=== PATIENT | male | born 1970 | race Caucasian/White ===

== ENCOUNTER 2017-08-22 17:06 | Emergency (ER) | payer OTHER ==
[~2017-08-22] VITALS: Ht 195.6 cm; Wt 122.7 kg
[~2017-08-22 17:06] MED LIST: ALBU8.5H8 IH; CHOL10002 PO; DULA1.5P SQ; METF500T PO; PRED10TA PO; TUBE5VIA3 ID
[2017-08-22] MEDS ORDERED: normal saline 1000ML IV soln IV ONE (20:05)
[2017-08-22 20:59] LABS: BASOPHILS # (AUTO) 0.1 X10'3 (0-0.2); BASOPHILS % (AUTO) 0.5 % (0-1); EOSINOPHILS # (AUTO) 0.1 X10'3 (0-0.9); EOSINOPHILS % (AUTO) 0.5 % (0-6); HEMATOCRIT 44.4 % (42.0-52.0); HEMOGLOBIN 15.3 g/dl (14.0-17.9); LYMPHOCYTES # (AUTO) 2.7 X10'3 (1.1-4.8); LYMPHOCYTES % (AUTO) 20.4 % (21-51); MEAN CORPUSCULAR HEMOGLOBIN 29.1 PG (27.0-31.0); MEAN CORPUSCULAR HGB CONC 34.4 % (33.0-36.5); MEAN CORPUSCULAR VOLUME 84.6 FL (78-98); MONOCYTES # (AUTO) 1.1 X10'3 (0-0.9); MONOCYTES % (AUTO) 8.5 % (2-12); NEUTROPHILS # (AUTO) 9.4 X10'3 (1.8-7.7); NEUTROPHILS % (AUTO) 70.1 % (42-75); PLATELET COUNT 257 X10'3 (140-440); RED BLOOD COUNT 5.25 X10'6 (4.70-6.10); RED CELL DISTRIBUTION WIDTH 14.1 % (11.5-14.5); WHITE BLOOD COUNT 13.4 X10'3 (4.5-11.0)
[2017-08-22 21:09] LABS: PROTHROMBIN TIME 10.4 SECONDS (9.0-12.0)
[2017-08-22] MEDS ORDERED: LIDOcaine 1.5% w/epinephrine 1:200,000 5ml ampul IJ ONE (21:10)
[2017-08-22] MEDS ORDERED: fentaNYL/PF 50MCG/1 ML 2ML syringe ONE (21:30)
[2017-08-22 21:36] LABS: ALANINE AMINOTRANSFERASE 35 U/L (12-78); ALBUMIN 3.5 G/DL (3.4-5.0); ALBUMIN/GLOBULIN RATIO 0.9 (1.1-1.5); ALKALINE PHOSPHATASE 80 IU/L (46-116); ANION GAP 10 (8-16); ASPARTATE AMINO TRANSFERASE 14 U/L (10-37); BILIRUBIN,TOTAL 0.5 MG/DL (0.1-1.0); BLOOD UREA NITROGEN 13 MG/DL (7-18); BUN/CREATININE RATIO 15.1 (5.4-32.0); CALCIUM 8.9 MG/DL (8.5-10.1); CHLORIDE 101 MMOL/L (99-107); CREATININE 0.86 MG/DL (0.60-1.10); GLUCOSE 278 MG/DL (70-104); POTASSIUM 3.8 MMOL/L (3.5-5.1); SODIUM 136 MMOL/L (135-145); TOTAL CARBON DIOXIDE 25.1 MMOL/L (24-32); TOTAL PROTEIN 7.6 G/DL (6.4-8.2); eGFR > 90 ML/MIN
[2017-08-22 21:37] LABS: C-REACTIVE PROTEIN 4.59 MG/DL (0.0-0.5); MAGNESIUM 1.8 MG/DL (1.5-2.4)
[2017-08-22] MEDS ORDERED: HYDR-3965 PO (22:10)
[2017-08-22] MEDS ORDERED: NAPR-1154 PO (22:10)
[2017-08-22 23:00] VITALS: BP 138/88
== END 2017-08-22 23:05 | disposition home or self-care (01) ==
LOC: ER 17:07
DX: M25.562 Pain in left knee (principal); I10 Essential (primary) hypertension; E11.9 Type 2 diabetes mellitus without complications; F17.210 Nicotine dependence, cigarettes, uncomplicated; F12.10 Cannabis abuse, uncomplicated; Z88.5 Allergy status to narcotic agent; Z86.14 Personal history of Methicillin resistant Staphylococcus aureus infection; Z79.84 Long term (current) use of oral hypoglycemic drugs; Z79.899 Other long term (current) drug therapy
CPT/HCPCS: 36415; 73564; 80053; 83735; 84145; 84550; 85025; 85610; 86140; 96374; 99285; A6449; J3010; J3490; J7030

== ENCOUNTER 2017-09-05 13:02 | Outpatient (CLI) | payer OTHER ==
[~2017-09-05 13:02] MED LIST changes: +HYDR-3965 PO; +NAPR-1154 PO
[2017-09-05 13:13] VITALS: BP 151/102
== END 2017-09-05 15:20 | disposition home or self-care (01) ==
LOC: ORTHO 13:02
PROVIDERS: ATTEND Nurse Practitioner Family
DX: M25.562 Pain in left knee (principal); I10 Essential (primary) hypertension; E11.9 Type 2 diabetes mellitus without complications; E78.00 Pure hypercholesterolemia, unspecified; F17.210 Nicotine dependence, cigarettes, uncomplicated; F12.90 Cannabis use, unspecified, uncomplicated
CPT/HCPCS: 73564; 99213

== ENCOUNTER 2017-09-14 11:12 | Outpatient (CLI) | payer OTHER ==
[2017-09-14 11:22] VITALS: BP 161/103
== END 2017-09-14 11:58 | disposition home or self-care (01) ==
LOC: ORTHO 11:12
PROVIDERS: ATTEND Nurse Practitioner Family
DX: M70.42 Prepatellar bursitis, left knee (principal); F17.200 Nicotine dependence, unspecified, uncomplicated; E78.00 Pure hypercholesterolemia, unspecified; I10 Essential (primary) hypertension; E11.9 Type 2 diabetes mellitus without complications; Z88.5 Allergy status to narcotic agent
CPT/HCPCS: 99213

== ENCOUNTER 2017-09-29 10:13 | Outpatient (CLI) | payer OTHER ==
[~2017-09-29 10:13] MED LIST changes: -HYDR-3965 PO
[2017-09-29 10:22] VITALS: BP 151/105
== END 2017-09-29 10:58 | disposition home or self-care (01) ==
LOC: ORTHO 10:13
PROVIDERS: ATTEND Nurse Practitioner Family
DX: M70.52 Other bursitis of knee, left knee (principal); E78.00 Pure hypercholesterolemia, unspecified; I10 Essential (primary) hypertension; E11.9 Type 2 diabetes mellitus without complications; J45.909 Unspecified asthma, uncomplicated; F17.210 Nicotine dependence, cigarettes, uncomplicated; Z88.8 Allergy status to other drugs, medicaments and biological substances
CPT/HCPCS: 99213

== ENCOUNTER 2017-10-17 10:05 | Outpatient (CLI) | payer OTHER ==
[2017-10-17 10:42] VITALS: BP 141/101
== END 2017-10-17 11:04 | disposition home or self-care (01) ==
LOC: ORTHO 10:05
PROVIDERS: ATTEND Nurse Practitioner Family
DX: M70.41 Prepatellar bursitis, right knee (principal); F17.210 Nicotine dependence, cigarettes, uncomplicated; E78.00 Pure hypercholesterolemia, unspecified; I10 Essential (primary) hypertension; E11.9 Type 2 diabetes mellitus without complications; J45.909 Unspecified asthma, uncomplicated; Z72.89 Other problems related to lifestyle; Z88.5 Allergy status to narcotic agent
CPT/HCPCS: 99213

== ENCOUNTER 2017-10-19 10:50 | Outpatient (CLI) | payer OTHER | END 2017-10-19 12:10 | disposition home or self-care (01) | LOC: ORTHO 10:50 | PROVIDERS: ATTEND Nurse Practitioner Family | DX: M17.12 Unilateral primary osteoarthritis, left knee (principal); M79.89 Other specified soft tissue disorders; E78.00 Pure hypercholesterolemia, unspecified; I10 Essential (primary) hypertension; E11.9 Type 2 diabetes mellitus without complications; J45.909 Unspecified asthma, uncomplicated; F17.210 Nicotine dependence, cigarettes, uncomplicated; Z72.89 Other problems related to lifestyle; Z88.5 Allergy status to narcotic agent | CPT/HCPCS: 73560; 99213 ==

== ENCOUNTER 2017-11-16 10:20 | Outpatient (CLI) | payer OTHER ==
[2017-11-16 10:29] VITALS: BP 164/111
== END 2017-11-16 11:15 | disposition home or self-care (01) ==
LOC: ORTHO 10:20
PROVIDERS: ATTEND Nurse Practitioner Family
DX: M70.42 Prepatellar bursitis, left knee (principal)
CPT/HCPCS: 99213

== ENCOUNTER 2017-12-07 09:59 | Outpatient (CLI) | payer OTHER ==
[2017-12-07 09:59] VITALS: BP 137/116
== END 2017-12-07 10:40 | disposition home or self-care (01) ==
LOC: ORTHO 09:59
PROVIDERS: ATTEND Nurse Practitioner Family
DX: M70.42 Prepatellar bursitis, left knee (principal)
CPT/HCPCS: 99213

== ENCOUNTER 2018-01-03 10:04 | Outpatient (CLI) | payer OTHER ==
[2018-01-03 10:04] VITALS: BP 152/103
== END 2018-01-03 10:27 | disposition home or self-care (01) ==
LOC: ORTHO 10:04
PROVIDERS: ATTEND Nurse Practitioner Family
DX: M70.42 Prepatellar bursitis, left knee (principal); E78.00 Pure hypercholesterolemia, unspecified; I10 Essential (primary) hypertension; E11.9 Type 2 diabetes mellitus without complications; F17.210 Nicotine dependence, cigarettes, uncomplicated; Z72.89 Other problems related to lifestyle; Z88.5 Allergy status to narcotic agent
CPT/HCPCS: 99213

== ENCOUNTER 2018-03-28 10:23 | Outpatient (CLI) | payer MEDICAID, OTHER ==
[2018-03-28 10:09] VITALS: BP 166/111
== END 2018-03-28 10:51 | disposition home or self-care (01) ==
LOC: ORTHO 10:23
PROVIDERS: ATTEND Nurse Practitioner Family
DX: M70.42 Prepatellar bursitis, left knee (principal); I10 Essential (primary) hypertension; E11.9 Type 2 diabetes mellitus without complications; J45.909 Unspecified asthma, uncomplicated; F17.210 Nicotine dependence, cigarettes, uncomplicated; E78.00 Pure hypercholesterolemia, unspecified; Z88.5 Allergy status to narcotic agent; Z79.84 Long term (current) use of oral hypoglycemic drugs
CPT/HCPCS: 99213

== ENCOUNTER 2018-04-25 10:09 | Outpatient (CLI) | payer MEDICAID ==
[2018-04-25 10:04] VITALS: BP 161/95
== END 2018-04-25 10:32 | disposition home or self-care (01) ==
LOC: ORTHO 10:09
PROVIDERS: ATTEND Nurse Practitioner Family
DX: M70.42 Prepatellar bursitis, left knee (principal); E78.00 Pure hypercholesterolemia, unspecified; I10 Essential (primary) hypertension; E11.9 Type 2 diabetes mellitus without complications; Z88.5 Allergy status to narcotic agent; Z87.891 Personal history of nicotine dependence
CPT/HCPCS: G0463

== ENCOUNTER 2018-05-23 10:10 | Outpatient (CLI) | payer MEDICAID ==
[2018-05-23 10:10] VITALS: BP 158/95
== END 2018-05-23 10:47 | disposition home or self-care (01) ==
LOC: ORTHO 10:10
PROVIDERS: ATTEND Nurse Practitioner Family
DX: M70.42 Prepatellar bursitis, left knee (principal); I10 Essential (primary) hypertension; E78.00 Pure hypercholesterolemia, unspecified; E11.9 Type 2 diabetes mellitus without complications; Z88.5 Allergy status to narcotic agent; Z87.891 Personal history of nicotine dependence
CPT/HCPCS: 99212

== ENCOUNTER 2019-02-09 00:49 | Emergency (ER) | payer MEDICAID ==
[~2019-02-09] VITALS: Ht 195.6 cm; Wt 119.8 kg
[2019-02-09] MEDS ORDERED: ketorolac trometh inj. 60 MG/2 ML VIAL IM ONE (01:30)
[2019-02-09] MEDS ORDERED: LIDOcaine 4% (40 mg/ml) topical solution 50ml TP ONE (01:35)
[2019-02-09] MEDS ORDERED: AMOX500C2 PO (01:39)
[2019-02-09] MEDS ORDERED: amoxicillin 250mg capsule PO ONE (03:15)
[2019-02-09 03:27] VITALS: BP 142/87
== END 2019-02-09 03:20 | disposition home or self-care (01) ==
LOC: ER 00:51
DX: H60.92 Unspecified otitis externa, left ear (principal); I10 Essential (primary) hypertension; E11.9 Type 2 diabetes mellitus without complications; Z86.14 Personal history of Methicillin resistant Staphylococcus aureus infection; Z79.899 Other long term (current) drug therapy; Z88.5 Allergy status to narcotic agent
CPT/HCPCS: 96372; 99283; J1885

== ENCOUNTER 2019-12-31 11:40 | Inpatient (IN) | payer MEDICAID ==
[~2019-12-31] VITALS: Ht 195.6 cm; Wt 122.7 kg
[2019-12-31] MEDS ORDERED: acetaminophen 325mg tablet PO STA (11:51)
[2019-12-31] MEDS ORDERED: normal saline 1000ML IV soln IV ONE (11:55)
[2019-12-31 12:45] LABS: BASOPHILS # (AUTO) 0.1 X10'3 (0-0.2); BASOPHILS % (AUTO) 0.6 % (0-1); EOSINOPHILS % (AUTO) 0.1 % (0-6); HEMATOCRIT 46.7 % (42.0-52.0); HEMOGLOBIN 15.7 g/dl (14.0-17.9); LYMPHOCYTES # (AUTO) 1.9 X10'3 (1.1-4.8); MEAN CORPUSCULAR HEMOGLOBIN 29.8 PG (27.0-31.0); MEAN CORPUSCULAR HGB CONC 33.7 g/dL (33.0-36.5); MEAN CORPUSCULAR VOLUME 88.6 FL (78-98); MEAN PLATELET VOLUME 8.5 FL (7.4-10.4); MONOCYTES # (AUTO) 1.4 X10'3 (0-0.9); MONOCYTES % (AUTO) 10.7 % (2-12); NEUTROPHILS % (AUTO) 74.6 % (42-75); PLATELET COUNT 265 X10'3 (140-440); RED BLOOD COUNT 5.27 X10'6 (4.70-6.10); RED CELL DISTRIBUTION WIDTH 14.3 % (11.5-14.5); WHITE BLOOD COUNT 13.5 X10'3 (4.5-11.0)
[2019-12-31 12:55] LABS: D-DIMER 0.25 MG/L FEU (0-0.50)
[2019-12-31] MEDS ORDERED: azithromycin/NS 500mg/250ml 250 ML IV ONE ×2 (12:55→16:00)
[2019-12-31] MEDS ORDERED: CefTRIAXone 2gm/D5W 50ml 50 ML IV ONE (12:55)
[2019-12-31] MEDS ORDERED: dexamethasone sod phosphate 10mg/ml inj IV STA (13:24)
[2019-12-31] MEDS ORDERED: ketorolac tromethamine 15mg/ml inj. IV ONE (13:45)
[2019-12-31 14:00] LABS: ALANINE AMINOTRANSFERASE 28 U/L (12-78); ALBUMIN 2.8 G/DL (3.4-5.0); ALBUMIN/GLOBULIN RATIO 0.8 (1.1-1.5); ALKALINE PHOSPHATASE 45 IU/L (46-116); ANION GAP 7 (8-16); ASPARTATE AMINO TRANSFERASE 13 U/L (10-37); BILIRUBIN,TOTAL 0.3 MG/DL (0.1-1.0); BLOOD UREA NITROGEN 12 MG/DL (7-18); BUN/CREATININE RATIO 9.4 (5.4-32.0); CALCIUM 7.3 MG/DL (8.5-10.1); CHLORIDE 103 MMOL/L (99-107); CREATININE 1.28 MG/DL (0.60-1.10); GLUCOSE 160 MG/DL (70-104); POTASSIUM 3.5 MMOL/L (3.5-5.1); SODIUM 136 MMOL/L (135-145); TOTAL CARBON DIOXIDE 26.1 MMOL/L (24-32); TOTAL PROTEIN 6.2 G/DL (6.4-8.2); eGFR 60 ML/MIN
[2019-12-31] MEDS ORDERED: LISI1TAB32 PO (15:18)
[2019-12-31] MEDS ORDERED: METF-438 PO (15:18)
[2019-12-31] MEDS ORDERED: SIMV80TA89 PO (15:18)
[2019-12-31] MEDS ORDERED: ERTU5TAB PO (15:18)
[2019-12-31] MEDS ORDERED: INSU100I31 SQ (15:18)
[2019-12-31] MEDS ORDERED: ASPI-611 PO (15:18)
[2019-12-31] MEDS ORDERED: acetaminophen 325mg tablet PO PRN (15:55)
[2019-12-31] MEDS ORDERED: magnesium 4gm in 100ml NS 100 ML IV PRN (15:55)
[2019-12-31] MEDS ORDERED: ondansetron/PF 4mg/2ml inj IV PRN (15:55)
[2019-12-31] MEDS ORDERED: magnesium Cl slow-release 64mg tablet PO PRN (15:55)
[2019-12-31] MEDS ORDERED: magnesium 2GM in 50ml NS 50 ML IV PRN (15:55)
[2019-12-31] MEDS ORDERED: potassium Cl 20 mEq SR tablet PO PRN ×2 (15:55)
[2019-12-31] MEDS ORDERED: potassium CL 10mEq/100ml bag 100 ML IV PRN ×2 (15:55)
--- NOTE | 2019-12-31 17:10 | NUR ---
PT RESTING ;AYYING SUPINE. RESPIRATIONS EVEN AND UNLABORED
[2019-12-31] MEDS: normal saline 1000ml 1,000 ML IV SCH (17:12)
[2019-12-31] MEDS ORDERED: glucagon, human recombinant 1mg kit SUBCUT PRN (17:45)
[2019-12-31] MEDS ORDERED: dextrose 50%-water 50ml dispensing syringe IV PRN ×2 (17:45)
[2019-12-31] MEDS ORDERED: MESSAGE TO PHARMACY PO ONE (17:45)
[2019-12-31] MEDS ORDERED: dextrose ORAL solution 15 GM/59 ML bottle PO PRN ×2 (17:45)
[2019-12-31] MEDS: K and/or MAG REPLACEMENT MC SCH (20:00)
[2019-12-31 20:30] VITALS: BP 131/80
[2019-12-31] MEDS: atorvastatin 20mg tablet PO SCH (20:52)
[2019-12-31] MEDS: heparin, porcine 5000 units/ml vial SQ SCH (20:52)
[2019-12-31] MEDS: insulin glargine (Lantus) pen - multi-dose SQ SCH (21:00)
[2020-01-01] VITALS: BP 100/65
[2020-01-01] MEDS: albuterol 2.5 MG/3 ML nebule NEB PRN ×2 (00:22→15:40)
[2020-01-01 01:01] LABS: BASOPHILS # (AUTO) 0.1 X10'3 (0-0.2); EOSINOPHILS % (AUTO) 0 % (0-6); HEMATOCRIT 41.9 % (42.0-52.0); HEMOGLOBIN 13.8 g/dl (14.0-17.9); LYMPHOCYTES # (AUTO) 1.5 X10'3 (1.1-4.8); LYMPHOCYTES % (AUTO) 11.7 % (21-51); MEAN CORPUSCULAR HEMOGLOBIN 28.8 PG (27.0-31.0); MEAN CORPUSCULAR HGB CONC 32.8 g/dL (33.0-36.5); MEAN CORPUSCULAR VOLUME 87.8 FL (78-98); MEAN PLATELET VOLUME 8.9 FL (7.4-10.4); MONOCYTES # (AUTO) 0.6 X10'3 (0-0.9); MONOCYTES % (AUTO) 4.5 % (2-12); NEUTROPHILS # (AUTO) 10.5 X10'3 (1.8-7.7); NEUTROPHILS % (AUTO) 82.8 % (42-75); PLATELET COUNT 234 X10'3 (140-440); RED BLOOD COUNT 4.78 X10'6 (4.70-6.10); RED CELL DISTRIBUTION WIDTH 14.3 % (11.5-14.5); WHITE BLOOD COUNT 12.7 X10'3 (4.5-11.0)
[2020-01-01] MEDS: temazepam 15mg capsule PO PRN (01:08)
[2020-01-01 01:16] LABS: ANION GAP 10 (8-16); BLOOD UREA NITROGEN 19 MG/DL (7-18); CALCIUM 8.5 MG/DL (8.5-10.1); CHLORIDE 102 MMOL/L (99-107); CREATININE 0.95 MG/DL (0.60-1.10); GLUCOSE 203 MG/DL (70-104); SODIUM 134 MMOL/L (135-145); eGFR 85 ML/MIN
[2020-01-01 01:21] LABS: POTASSIUM 4.2 MMOL/L (3.5-5.1)
[2020-01-01] MEDS: normal saline 1000ml 1,000 ML IV SCH ×4 (01:55→21:55)
[2020-01-01 07:00] VITALS: BP 120/80
[2020-01-01] MEDS: K and/or MAG REPLACEMENT MC SCH ×2 (08:00→20:00)
[2020-01-01] MEDS: azithromycin/NS 500mg/250ml 250 ML IV SCH (08:00)
[2020-01-01] MEDS: CefTRIAXone/D5W-Rocephin 1gm 50 ML IV SCH (08:15)
[2020-01-01] MEDS: HYDROchlorothiazide 12.5mg capsule PO SCH (08:16)
[2020-01-01] MEDS: aspirin 81mg tablet.DR PO SCH (08:16)
[2020-01-01] MEDS: lisinopril 10 MG tablet PO SCH (08:20)
[2020-01-01] MEDS: heparin, porcine 5000 units/ml vial SQ SCH ×2 (08:31→19:11)
[2020-01-01] MEDS ORDERED: FLU VACC QS2020-21(6MOS UP)/PF 60 MCG/0.5 ML SYRINGE IMVAC ONE (10:00)
[2020-01-01 12:00] VITALS: BP 109/66
--- NOTE | 2020-01-01 14:58 | NUR ---
Pt with A1c 7.4%, down from 11.2% in April 2016 per records. Written DM education and RD contact information placed in patient's chart. Will remain available. Addendum: 01/01/20 at [address] Amended: Links added.
--- NOTE | 2020-01-01 17:01 | NUR ---
Student documentation: I have reviewed all interventions, assessments performed and documented by Kaci DUNBAR from [facility]. Addendum: 01/01/20 at 1702 by Nury CORDERO RN Student documentation: I have reviewed all interventions, assessments performed and documented by Hayes DUNBAR from [facility].
[2020-01-01 18:00] VITALS: BP 112/72
--- NOTE | 2020-01-01 18:15 | NUR ---
Gave report to Renzo ARAGON. Pt. is resting comfortably in his bed in his room with no needs at this time.
[2020-01-01] MEDS: lactobacillus rhamnosus 10,000 MMU CELLS/CAPSULE PO SCH (19:11)
[2020-01-01] MEDS: insulin Lispro (HumaLOG) vial - multi-dose SQ SCH (19:15)
[2020-01-01] MEDS: atorvastatin 20mg tablet PO SCH (22:00)
[2020-01-01] MEDS: insulin glargine (Lantus) pen - multi-dose SQ SCH (22:03)
[2020-01-02] VITALS: BP 119/79
[2020-01-02] MEDS: temazepam 15mg capsule PO PRN (00:53)
[2020-01-02 05:11] LABS: ALBUMIN 2.8 G/DL (3.4-5.0); ANION GAP 6 (8-16); BLOOD UREA NITROGEN 17 MG/DL (7-18); BUN/CREATININE RATIO 18.7 (5.4-32.0); CALCIUM 8.2 MG/DL (8.5-10.1); CHLORIDE 105 MMOL/L (99-107); CREATININE 0.91 MG/DL (0.60-1.10); GLUCOSE 153 MG/DL (70-104); MAGNESIUM 1.9 MG/DL (1.5-2.4); POTASSIUM 3.7 MMOL/L (3.5-5.1); SODIUM 138 MMOL/L (135-145); eGFR 89 ML/MIN
[2020-01-02 05:26] LABS: BASOPHILS # (AUTO) 0.1 X10'3 (0-0.2); BASOPHILS % (AUTO) 0.7 % (0-1); EOSINOPHILS # (AUTO) 0.2 X10'3 (0-0.9); HEMATOCRIT 41.5 % (42.0-52.0); HEMOGLOBIN 13.8 g/dl (14.0-17.9); LYMPHOCYTES # (AUTO) 2.2 X10'3 (1.1-4.8); LYMPHOCYTES % (AUTO) 28.7 % (21-51); MEAN CORPUSCULAR HEMOGLOBIN 29.5 PG (27.0-31.0); MEAN CORPUSCULAR HGB CONC 33.3 g/dL (33.0-36.5); MEAN CORPUSCULAR VOLUME 88.5 FL (78-98); MEAN PLATELET VOLUME 9.2 FL (7.4-10.4); MONOCYTES # (AUTO) 0.9 X10'3 (0-0.9); MONOCYTES % (AUTO) 12.3 % (2-12); NEUTROPHILS # (AUTO) 4.3 X10'3 (1.8-7.7); NEUTROPHILS % (AUTO) 56.3 % (42-75); PLATELET COUNT 253 X10'3 (140-440); RED BLOOD COUNT 4.69 X10'6 (4.70-6.10); RED CELL DISTRIBUTION WIDTH 14.6 % (11.5-14.5); WHITE BLOOD COUNT 7.6 X10'3 (4.5-11.0)
--- NOTE | 2020-01-02 06:36 | NUR ---
Patient in room [facility]. I have received report from Renzo ARAGON and had the opportunity to ask questions and assume patient care.
[2020-01-02 07:31] VITALS: BP 133/73
[2020-01-02] MEDS: normal saline 1000ml 1,000 ML IV SCH (07:55)
[2020-01-02] MEDS: aspirin 81mg tablet.DR PO SCH (08:00)
[2020-01-02] MEDS: lactobacillus rhamnosus 10,000 MMU CELLS/CAPSULE PO SCH (08:00)
[2020-01-02] MEDS: lisinopril 10 MG tablet PO SCH (08:00)
[2020-01-02] MEDS: HYDROchlorothiazide 12.5mg capsule PO SCH (08:00)
[2020-01-02] MEDS: K and/or MAG REPLACEMENT MC SCH (08:00)
[2020-01-02] MEDS: heparin, porcine 5000 units/ml vial SQ SCH (08:01)
[2020-01-02] MEDS: CefTRIAXone/D5W-Rocephin 1gm 50 ML IV SCH (08:01)
[2020-01-02] MEDS: azithromycin/NS 500mg/250ml 250 ML IV SCH (08:01)
[2020-01-02] MEDS: insulin Lispro (HumaLOG) vial - multi-dose SQ SCH (09:07)
[2020-01-02] MEDS ORDERED: pneumococcal 23-VAL P-sac vacc 25 mcg/0.5ml vial IMVAC ONE (10:00)
[2020-01-02] MEDS ORDERED: LEVO500T89 PO (10:25)
[2020-01-02 11:00] VITALS: BP 121/75
--- NOTE | 2020-01-02 12:55 | NUR ---
Pt DC to home with . Pt is A & O x4 and in no apparent distress. Pt verbalizes understanding of all DC orders and understands the importance to follow up with his PCP within 1 week. Pt also was educted on the importance of finishing ALL his antibiotics as well as S & S of infection getting worse. Pt will be using his flutter valve and his IS for the nest 3 weeks until he feels better. Pt collected all of his personal belongings and will have his come pick him up. Pt's IV cath removed, intact. 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 Pt carried all of his belongings.
--- NOTE | 2020-01-02 13:00 | NUR ---
pt refused Accucheck. Pt going home. Addendum: 01/02/20 at 1301 by Becky Rodrigues RN Amended: Links added.
--- NOTE | 2020-01-02 16:49 | NUR ---
PAGER ID: [phone] MESSAGE: Og Otoole #[id number] - Pt Dc at 1255, pt called back and would like to get a work excused from 01/01-01/06/20 Please advise. Becky
--- NOTE | 2020-01-02 17:09 | NUR ---
paged Dr olivo regarding getting a work excused for pt that wanted to take a few days off from work. Elisha the Pt's called and complained he needed extra days off until pt feels better. Dr olivo called back after the page, and Dr Olivo felt the pt was well enough to go back to work and deny a work excused. Elisha/Pt were called back and notified of the doctors response was no. got upset and did not agree with Doctors decision. An apology was offered but she was still not happy. Hung up.
== END 2020-01-02 12:56 | disposition home or self-care (01) | DRG 139 ==
LOC: ER 11:41 → ED HOLD 15:53 → SUR 3N 20:00
PROVIDERS: ADMIT Internal Medicine; ATTEND Internal Medicine
PROC: 3E02340 Introduction of Influenza Vaccine into Muscle, Percutaneous Approach (ICD-10-PCS; principal; 2020-01-01)
PROC: 3E0234Z Introduction of Serum, Toxoid and Vaccine into Muscle, Percutaneous Approach (ICD-10-PCS; 2020-01-02)
DX: J18.9 Pneumonia, unspecified organism (principal); I10 Essential (primary) hypertension; E11.9 Type 2 diabetes mellitus without complications; Z88.8 Allergy status to other drugs, medicaments and biological substances; E78.5 Hyperlipidemia, unspecified; Z20.828 Contact with and (suspected) exposure to other viral communicable diseases; Z23 Encounter for immunization
CPT/HCPCS: 36415; 71045; 80048; 80053; 82948; 83036; 83605; 83735; 83880; 84145; 84484; 85025; 85379; 87040; 87081; 87635; 90732; 93005; 94640; 94667; 94760; 96365; 99285; G0378; J0456; J0696; J1100; J1644; J1815; J1885; J7030; Q2039

== ENCOUNTER 2020-07-12 15:54 | Emergency (ER) | payer MEDICAID ==
[~2020-07-12] VITALS: Ht 195.6 cm; Wt 111.5 kg
[~2020-07-12 15:54] MED LIST changes: -ALBU8.5H8 IH; +ASPI-611 PO; -CHOL10002 PO; -DULA1.5P SQ; +ERTU5TAB PO; +INSU100I31 SQ; +LISI1TAB32 PO; +METF-438 PO; -METF500T PO; -NAPR-1154 PO; -PRED10TA PO; +SIMV80TA89 PO; -TUBE5VIA3 ID
[2020-07-12 15:59] VITALS: BP 121/78
[2020-07-12] MEDS ORDERED: IBUP-1984 PO (16:53)
[2020-07-12] MEDS ORDERED: ketorolac tromethamine 15mg/ml inj. IM ONE (17:00)
== END 2020-07-12 17:24 | disposition home or self-care (01) ==
LOC: ER 15:55
DX: M72.2 Plantar fascial fibromatosis (principal); M77.8 Other enthesopathies, not elsewhere classified; M79.672 Pain in left foot; I10 Essential (primary) hypertension; E11.9 Type 2 diabetes mellitus without complications; Z86.14 Personal history of Methicillin resistant Staphylococcus aureus infection; Z72.89 Other problems related to lifestyle; Z88.5 Allergy status to narcotic agent; Z79.82 Long term (current) use of aspirin; Z79.4 Long term (current) use of insulin; Z79.899 Other long term (current) drug therapy
CPT/HCPCS: 29515; 73630; 96372; 99283; J1885

== ENCOUNTER 2021-02-12 17:13 | Emergency (ER) | payer MEDICAID ==
[~2021-02-12] VITALS: Ht 195.6 cm; Wt 115.9 kg
[~2021-02-12 17:13] MED LIST changes: -LISI1TAB32 PO; +LISI1TAB49 PO
[2021-02-12 17:36] VITALS: BP 139/91
[2021-02-12] MEDS ORDERED: IBUP-1984 PO (20:41)
[2021-02-12] MEDS ORDERED: ketorolac tromethamine 15mg/ml inj. IV ONE (20:55)
== END 2021-02-12 20:57 | disposition home or self-care (01) ==
LOC: ER 17:13
DX: S09.90XA Unspecified injury of head, initial encounter (principal); S00.81XA Abrasion of other part of head, initial encounter; M25.512 Pain in left shoulder; I10 Essential (primary) hypertension; E11.9 Type 2 diabetes mellitus without complications; Z86.14 Personal history of Methicillin resistant Staphylococcus aureus infection; Z72.89 Other problems related to lifestyle; Z88.5 Allergy status to narcotic agent; Z79.82 Long term (current) use of aspirin; Z79.4 Long term (current) use of insulin; Z79.899 Other long term (current) drug therapy; W01.0XXA Fall on same level from slipping, tripping and stumbling without subsequent striking against object, initial encounter; Y93.89 Activity, other specified; Y92.89 Other specified places as the place of occurrence of the external cause; Y99.8 Other external cause status
CPT/HCPCS: 70450; 73030; 96374; 99284; J1885

== ENCOUNTER 2023-04-04 11:44 | Observation (INO) | payer MEDICAID ==
[~2023-04-04] VITALS: Ht 195.6 cm; Wt 108.3 kg
[2023-04-04] VITALS (13 sets, daily range): BP systolic 132–158; BP diastolic 77–105; PULSE 72–97; RESP 10–17; TEMP 97; O2SAT 90–100
[2023-04-04 12:52] LABS: BASOPHILS # (AUTO) 0.1 X10'3 (0-0.2); BASOPHILS % (AUTO) 0.6 % (0-1); EOSINOPHILS # (AUTO) 0.1 X10'3 (0-0.9); EOSINOPHILS % (AUTO) 1.5 % (0-6); HEMATOCRIT 40.5 % (42.0-52.0); HEMOGLOBIN 13.6 g/dl (14.0-17.9); LYMPHOCYTES # (AUTO) 2.1 X10'3 (1.1-4.8); MEAN CORPUSCULAR HEMOGLOBIN 30.5 PG (27.0-31.0); MEAN CORPUSCULAR HGB CONC 33.5 g/dL (33.0-36.5); MEAN CORPUSCULAR VOLUME 90.9 FL (78-98); MEAN PLATELET VOLUME 8.5 FL (7.4-10.4); MONOCYTES # (AUTO) 1.2 X10'3 (0-0.9); MONOCYTES % (AUTO) 12.3 % (2-12); NEUTROPHILS % (AUTO) 63.6 % (42-75); PLATELET COUNT 241 X10'3 (140-440); RED BLOOD COUNT 4.46 X10'6 (4.70-6.10); RED CELL DISTRIBUTION WIDTH 15.1 % (11.5-14.5); WHITE BLOOD COUNT 9.4 X10'3 (4.5-11.0)
[2023-04-04 12:53] LABS: BILIRUBIN,URINE NEGATIVE (Neg); CLARITY,URINE SLIGHTLY CLOUDY (Clear); COLOR,URINE YELLOW (Yellow); GLUCOSE, URINE NEGATIVE (Neg); KETONES,URINE TRACE mg/dl (Neg); LEUKOCYTE ESTERASE ,URINE NEGATIVE (Neg); NITRITES, URINE NEGATIVE (Neg); OCCULT BLOOD,URINE NEGATIVE (Neg); PH,URINE 7.5 (4.8-8.0); PROTEIN,URINE TRACE mg/dl (Neg); UROBILINOGEN,URINE 0.2 E.U/dL (0.2-1.0)
[2023-04-04 12:58] LABS: MUCUS STRANDS MANY /LPF (Neg); UA COLLECTION TYPE NON-SPECIFIED
[2023-04-04 12:59] LABS: SQUAMOUS EPITHELIAL CELL,UR MODERATE /LPF (FEW)
[2023-04-04 13:00] LABS: BACTERIA,URINE FEW /HPF (Neg); RBC,URINE 0-2 /HPF (0-2); WBC CLUMPS,URINE FEW /HPF (NEGATIVE)
[2023-04-04 13:09] LABS: ALANINE AMINOTRANSFERASE 35 U/L (12-78); ALBUMIN 3.6 G/DL (3.4-5.0); ALBUMIN/GLOBULIN RATIO 0.9 (1.1-1.5); ALKALINE PHOSPHATASE 49 IU/L (46-116); ANION GAP 7 (8-16); ASPARTATE AMINO TRANSFERASE 20 U/L (10-37); BILIRUBIN,TOTAL 0.8 MG/DL (0.1-1.0); BLOOD UREA NITROGEN 9 MG/DL (7-18); BUN/CREATININE RATIO 11.1 (10.0-20.0); CALCIUM 7.6 MG/DL (8.5-10.1); CHLORIDE 102 MMOL/L (99-107); CREATININE 0.81 MG/DL (0.60-1.10); GLUCOSE 109 MG/DL (70-104); LIPASE 92 U/L (16-77); POTASSIUM 3.8 MMOL/L (3.5-5.1); SODIUM 138 MMOL/L (135-145); TOTAL PROTEIN 7.4 G/DL (6.4-8.2); eCRCL 136 ML/MIN; eGFR > 90 ML/MIN
[2023-04-04] MEDS ORDERED: iohexol 300mg/ml 100ml inj. ONE (15:37)
[2023-04-04] MEDS ORDERED: morphine 4 MG/ML inj SYRINge IV ONE (16:40)
[2023-04-04] MEDS ORDERED: piperacillin/tazo 3.375gm/50ml 50 ML IV ONE (16:40)
[2023-04-04] MEDS ORDERED: ondansetron/PF 4mg/2ml inj IV ONE (16:40)
[2023-04-04] MEDS ORDERED: potassium Cl 40MEQ/1/2NS 520ml 520 ML IV PRN (17:50)
[2023-04-04] MEDS ORDERED: magnesium 2GM in 50ml NS 50 ML IV PRN (17:50)
[2023-04-04] MEDS ORDERED: magnesium 4gm in 100ml NS 100 ML IV PRN (17:50)
[2023-04-04] MEDS ORDERED: potassium Cl 20 mEq SR tablet PO PRN ×2 (17:50)
[2023-04-04] MEDS ORDERED: ondansetron/PF 4mg/2ml inj IV PRN ×2 (17:50→20:20)
[2023-04-04] MEDS ORDERED: magnesium Cl slow-release 64mg tablet PO PRN (17:50)
[2023-04-04] MEDS ORDERED: meperidine/PF 25mg/ml syringe IV ONE (18:45)
[2023-04-04] MEDS ORDERED: LIDOcaine 1% 30ml preserv. free vial ONE (19:46)
[2023-04-04] MEDS ORDERED: BUPIVAcaine/PF 2.5mg/ml (0.25%) 10ml vial ONE (19:47)
[2023-04-04] MEDS ORDERED: midazolam 1 mg/ML 2ml injection ONE (19:56)
[2023-04-04] MEDS ORDERED: fentaNYL /PF 50mcg/ml 5ml ampule ONE (19:56)
[2023-04-04] MEDS ORDERED: K and/or MAG REPLACEMENT MC SCH (20:00)
[2023-04-04] MEDS ORDERED: dexamethasone sod phosphate 4mg/ml inj. ONE (20:01)
[2023-04-04] MEDS ORDERED: propofol inj 20 ML IV ONE (20:01)
[2023-04-04] MEDS ORDERED: rocuronium 10mg/ml inj IV ONE (20:01)
[2023-04-04] MEDS ORDERED: LIDOcaine 2% (20mg/ml) 5ml vial ONE (20:04)
[2023-04-04] MEDS ORDERED: ondansetron/PF 4mg/2ml inj ONE (20:04)
[2023-04-04] MEDS ORDERED: sevoflurane 250ml liquid IH ONE (20:04)
[2023-04-04] MEDS ORDERED: meperidine/PF 25mg/ml syringe IV PRN ×3 (20:20)
[2023-04-04] MEDS ORDERED: proCHLORperazine 10 MG/2 ml inj IV PRN (20:20)
[2023-04-04] MEDS ORDERED: morphine 4 MG/ML inj SYRINge IV PRN (20:20)
[2023-04-04] MEDS ORDERED: morphine 2 MG/ML inj. syringe IV PRN (20:20)
[2023-04-04] MEDS ORDERED: ringers solution, lacted 1,000 ML IV SCH (20:20)
[2023-04-04] MEDS ORDERED: LIDOcaine 1% 30ml preserv. free vial IJ ONE (20:44)
[2023-04-04] MEDS ORDERED: BUPIVAcaine 2.5mg/ml inj 50ml vial (contains preservative) SQ ONE (20:45)
[2023-04-04] MEDS ORDERED: glycopyrrolate 0.2mg/ml inj ONE (20:59)
[2023-04-04] MEDS ORDERED: neostigmine methylsulfate 1 MG/ML 10ml vial ONE (20:59)
[2023-04-04] MEDS ORDERED: naloxone 0.4 mg/ml inj IV PRN (21:15)
[2023-04-04] MEDS ORDERED: ePHEDrine 50MG/ML INJ. ONE (21:19)
[2023-04-04] MEDS ORDERED: ipratropium/albuterol 3ml nebule IH ONE (21:25)
[2023-04-04 22:39] LABS: HEMOGLOBIN A1C 5.5 % (4.5-6.2)
[2023-04-04] MEDS: normal saline 1000ml 1,000 ML IV SCH (23:00)
[2023-04-05] VITALS: BP 130/79
[2023-04-05 01:30] VITALS: BP 122/74; PULSE 88; TEMP 97.5; O2SAT 95
[2023-04-05 01:43] VITALS: BP 122/74; PULSE 86; RESP 16; TEMP 97.5; O2SAT 95
[2023-04-05] MEDS: morphine 2 MG/ML inj. syringe IV PRN ×3 (03:24→17:55)
[2023-04-05] MEDS: normal saline 1000ml 1,000 ML IV SCH (03:50)
[2023-04-05 06:00] VITALS: BP 154/87; PULSE 78; RESP 18; TEMP 98; O2SAT 98
[2023-04-05 06:45] LABS: BASOPHILS % (AUTO) 0.2 % (0-1); EOSINOPHILS % (AUTO) 0 % (0-6); HEMATOCRIT 39.9 % (42.0-52.0); HEMOGLOBIN 13.2 g/dl (14.0-17.9); LYMPHOCYTES # (AUTO) 0.5 X10'3 (1.1-4.8); LYMPHOCYTES % (AUTO) 7.4 % (21-51); MEAN CORPUSCULAR HEMOGLOBIN 29.9 PG (27.0-31.0); MEAN CORPUSCULAR VOLUME 90.6 FL (78-98); MEAN PLATELET VOLUME 8.6 FL (7.4-10.4); MONOCYTES # (AUTO) 0.3 X10'3 (0-0.9); MONOCYTES % (AUTO) 3.8 % (2-12); NEUTROPHILS # (AUTO) 6.1 X10'3 (1.8-7.7); NEUTROPHILS % (AUTO) 88.6 % (42-75); PLATELET COUNT 237 X10'3 (140-440); RED CELL DISTRIBUTION WIDTH 14.9 % (11.5-14.5); WHITE BLOOD COUNT 6.9 X10'3 (4.5-11.0)
[2023-04-05 07:02] LABS: ANION GAP 7 (8-16); BLOOD UREA NITROGEN 10 MG/DL (7-18); BUN/CREATININE RATIO 12.3 (10.0-20.0); CALCIUM 8.1 MG/DL (8.5-10.1); CHLORIDE 103 MMOL/L (99-107); CREATININE 0.81 MG/DL (0.60-1.10); GLUCOSE 180 MG/DL (70-104); MAGNESIUM 1.9 MG/DL (1.5-2.4); POTASSIUM 4.5 MMOL/L (3.5-5.1); SODIUM 135 MMOL/L (135-145); TOTAL CARBON DIOXIDE 24.6 MMOL/L (24-32); eCRCL 136 ML/MIN; eGFR > 90 ML/MIN
[2023-04-05 10:00] VITALS: BP 149/85; PULSE 73; RESP 14; TEMP 97.3; O2SAT 99
[2023-04-05] MEDS ORDERED: pneumococcal 23-VAL P-sac vacc 25 mcg/0.5ml vial IMVAC ONE (10:00)
[2023-04-05] MEDS ORDERED: FLU VACC QS2023-24(6MOS UP)/PF 60 MCG/0.5 ML SYRINGE IM ONE (10:00)
[2023-04-05 17:55] VITALS: RESP 14
== END 2023-04-05 18:45 | disposition home or self-care (01) ==
LOC: ER 11:45 → INTOOBSV 17:53 → ED HOLD 17:53 → ORTHO 4S 21:30
PROVIDERS: ADMIT Internal Medicine; ATTEND Internal Medicine
DX: K35.80 Unspecified acute appendicitis (principal); K85.90 Acute pancreatitis without necrosis or infection, unspecified; K76.0 Fatty (change of) liver, not elsewhere classified; R11.2 Nausea with vomiting, unspecified; I10 Essential (primary) hypertension; E11.9 Type 2 diabetes mellitus without complications; E78.5 Hyperlipidemia, unspecified; D18.03 Hemangioma of intra-abdominal structures; F12.90 Cannabis use, unspecified, uncomplicated; E66.9 Obesity, unspecified; Z79.899 Other long term (current) drug therapy; Z23 Encounter for immunization
CPT/HCPCS: 36415; 44970; 71045; 74177; 76700; 80048; 80053; 81001; 82948; 83036; 83690; 83735; 84484; 85025; 87081; 87088; 90471; 90472; 90686; 90732; 93005; 94640; 94760; 96361; 96365; 96375; 96376; 99285; G0378; J1100; J2175; J2250; J2270; J2405; J2543; J2704; J2710; J3010; J3490; J7030; J7120; Q9967; S2900; A4215; A4618